=== PATIENT | female | born 1975 | race Two or more races ===

== ENCOUNTER 2018-07-16 18:50 | Emergency (ER) | payer SELFPAY, OTHER | END 2018-07-16 20:15 | disposition left against medical advice (07) | LOC: E/R 18:50 | DX: Z53.21 Procedure and treatment not carried out due to patient leaving prior to being seen by health care provider (principal) ==

== ENCOUNTER 2018-08-13 22:17 | Emergency (ER) | payer OTHER ==
[2018-08-14] MEDS: HYDROCODONE/APAP (5/325) TAB PO (01:14)
== END 2018-08-14 03:16 | disposition home or self-care (01) ==
LOC: FTE 22:17
DX: N83.202 Unspecified ovarian cyst, left side (principal)
CPT/HCPCS: 76830; 76856; 81025; 99284-25